=== PATIENT | female | born 1970 | race Caucasian/White ===

== ENCOUNTER 2016-06-29 11:17 | Emergency (ER) | payer BC ==
[2016-06-29] MEDS ORDERED: Aspirin Low Dose CHEW TAB* 81 MG PO ONE (14:09)
[2016-06-29] MEDS ORDERED: NS 0.9% 1000 ML* 1,000 ML IV ONE (14:10)
--- NOTE | 2016-06-29 16:00 | RAD ---
INDICATION: Pain and swelling. Pain COMPARISON: None TECHNIQUE: Duplex interrogation of the Lowerextremity was performed. FINDINGS: Deep veins: The common femoral, great saphenous, profunda femoris, proximal, mid, and distal deep femoral, popliteal, posterior tibial, and peroneal veins are patent. There is normal compressibility, augmentation, and phasic flow. Superficial veins: There are no findings of superficial thrombophlebitis. Popliteal fossa:There is no evidence of a popliteal cyst. Soft tissues:There are no soft tissue abnormalities. IMPRESSION: Normal examination. No evidence of deep venous thrombosis
[2016-06-29 16:50] LABS: Hematocrit 41 % (35-47); Hemoglobin 13.3 g/dl (12.0-16.0); Mean Corpuscular HGB Conc 33 g/dl (31-36); Mean Corpuscular Hemoglobin 26 pg (27-31); Mean Corpuscular Volume 79 fL (80-97); Mean Platelet Volume 8 um3 (7.4-10.4); Red Blood Count 5.18 10^6/ul (4.0-5.4); Red Cell Distribution Width 16 % (10.5-15); White Blood Count 6.3 10^3/ul (3.5-10.8)
[2016-06-29 17:06] LABS: ALT 20 U/L (7-52); AST 19 U/L (13-39); Albumin 4.2 g/dL (3.2-5.2); Alkaline Phosphatase 65 U/L (34-104); Anion Gap 9 mmol/L (2-11); BUN/Creatinine Ratio 7.7 (8-20); Blood Urea Nitrogen 5 mg/dL (6-24); CO2 Carbon Dioxide 25 mmol/L (22-32); Calcium 9.7 mg/dL (8.6-10.3); Chloride 102 mmol/L (101-111); EGFR African American 127.9 (>60); EGFR Non-African American 99.5 (>60); Globulin 3.3 g/dL (2-4); Glucose 98 mg/dL (70-100); Potassium 3.8 mmol/L (3.5-5.0); Sodium 136 mmol/L (133-145); Total Protein 7.5 g/dL (6.4-8.9)
[2016-06-29] MEDS ORDERED: Iohexol 350* (CONTRAST) 500 ML MDV IV ONE (17:09)
--- NOTE | 2016-06-29 17:42 | RAD ---
INDICATION: Chest pain. Short of breath. Evaluate for pulmonary embolus. COMPARISON: Venous duplex examination June 29, 2016 TECHNIQUE: Axial source images were obtained from the thoracic inlet to the hemidiaphragms following administration of [address] angiographic technique was utilized. Coronal and sagittal reconstructed images were acquired. CHEST FINDINGS: Neck/thyroid: The visualized neck to include the thyroid appear normal. Chest wall: There are no acute abnormalities of the bony thorax or chest wall. There is no supraclavicular, infraclavicular, or axillary lymphadenopathy. Lungs : There are no pulmonary parenchymal masses or infiltrates. The pulmonary interstitium appears normal. There are no endobronchial lesions. Cardiomediastinal structures: There is no CT evidence of acute pulmonary embolic disease. The heart is normal in size. There is no pericardial effusion. There is no evidence of aortic aneurysm or dissection. There is no mediastinal or hilar adenopathy. The esophagus appears normal. Pleura : There are no pleural-based masses or effusions. Other: There is a small hiatal hernia.. IMPRESSION: NO EVIDENCE OF ACUTE PULMONARY EMBOLIC DISEASE. LUNGS CLEAR. SMALL HIATAL HERNIA.
[2016-06-29 18:56] VITALS: BP 141/81
--- NOTE | 2016-07-09 11:56 | ED ---
Delvis Whatley Janilya, scribed for Erin Dawn MD on 06/29/16 at 1634 . Lower Extremity - HPI Summary HPI Summary: [facility] 45 y/o [facility] w/ a gradual onset of constant chest pressure and pain for about three weeks. Pt also reports SOB, fever of 99 F, cough. In addition, pt feels pain in her legs that feels like a pulled muscle. It first started w/ her left leg, and now the pain is also in the right leg. Pt was diagnosed w/ DVT previously. Pt states the pain feels similar. Pt is on blood thinner Xarelto. - History of Current Complaint Chief Complaint: EDDysrhythmPalp Stated Complaint: RAPID HEART RATE / DIFF BREATHING Time Seen by Provider: 06/29/16 16:07 Hx Obtained From: Patient Hx Last Menstrual Period: 05/18/14 Onset/Duration: Weeks Severity Initially: Moderate Severity Currently: Moderate Timing: Constant, Lasting Weeks Character Of Pain: Dull, Aching Aggravating Factor(s): Ambulation, Weight Bearing Alleviating Factor(s): Rest - Risk Factors Gout Risk Factors: Negative DVT Risk Factors: Negative Septic Arthritis Risk Factor: Negative - Allergies/Home Medications Allergies/Adverse Reactions: Allergies Allergy/AdvReac Type Severity Reaction Status Date / Time Sulfa Drugs Allergy TACHYCARDIA, Verified 11/14/14 08:18 BLOOD PRESSURE ELEVATES, ITCHY RASH CHEMICAL SENSITIVITY Allergy ASTHMA Uncoded 11/14/14 08:18 Home Medications: Home Medications Albuterol HFA INHALER* [Ventolin HFA Inhaler*] 1 puff INH Q6H PRN 06/29/16 [ History Confirmed 06/29/16] Cholecalciferol TAB* [Vitamin D TAB*] 2,000 units PO DAILY 06/29/16 [History Confirmed 06/29/16] DULoxetine DR CAP* [Cymbalta CAP*] 30 mg PO BEDTIME 06/29/16 [History Confirmed 06/29/16] DULoxetine DR CAP* [Cymbalta CAP*] 60 mg PO BEDTIME 06/29/16 [History Confirmed 06/29/16] Fluticasone NASAL SPRAY 50MCG* [Flonase NASAL SPRAY 50MCG*] 2 spray BOTH NARES DAILY 06/29/16 [History Confirmed 06/29/16] Multivitamins/Minerals TAB* [Theragran/minerals TAB*] 2 tab PO QAM 06/29/16 [ History Confirmed 06/29/16] Norethin Acet & Estrad-Fe [Taytulla 1-20 mg-Mcg(24)] 1 cap PO DAILY 06/29/16 [ History Confirmed 06/29/16] Rivaroxaban TAB(*) [Xarelto 15 mg(*)] 15 mg PO BID WITH MEALS 06/29/16 [History Confirmed 06/29/16] Vitamin E CAP* 400 unit PO QAM 06/29/16 [History Confirmed 06/29/16] busPIRone TAB* [Buspar TAB*] 10 mg PO TID 06/29/16 [History Confirmed 06/29/16] clonazePAM TAB(*) [KlonoPIN TAB(*)] 0.5 mg PO BID PRN 06/29/16 [History Confirmed 06/29/16] PMH/Surg Hx/FS Hx/Imm Hx Endocrine/Hematology History: Denies: Hx Diabetes, Hx Thyroid Disease Cardiovascular History: Reports: Hx Peripheral Vascular Disease - VARICOSE VEINS Denies: Hx Hypertension Comment Only: Other Cardiovascular Problems/Disorders - OCCASIONAL BILATERAL ANKLE SWELLIN, NONE NOW Respiratory History: Reports: Hx Asthma - with chemicals, Hx Sleep Apnea - not as big of an issue since losing 150 pounds Denies: Hx Chronic Obstructive Pulmonary Disease (COPD) GI History: Denies: Hx Cirrhosis, Hx Ulcer Musculoskeletal History: Reports: Hx Arthritis - BILATERAL KNEES Sensory History: Reports: Hx Contacts or Glasses Denies: Hx Hearing Aid Opthamlomology History: Reports: Hx Contacts or Glasses Neurological History: Reports: Hx Migraine - OCCASIONAL, LAST ONE IN JULY 2013 Psychiatric History: Reports: Hx Anxiety, Hx Depression - SEASONAL EFFECTIVE DISORDER, CONTROL WITH MEDS - Surgical History Surgery Procedure, Year, and Place: 1986 TONSILLECTOMY, [place]. 1989 WISDOM TOOTH EXTRACTION, [facility]. 2007 RIGHT KNEE ARTHROSCOPY AND DEBRIDEMENT, [place], [place]. 2009 LEFT KNEE ARTHROSCOPY AND DEBRIDEMENT, [place]. 2012 LAPAROSCOPIC GASTRIC BYPASS, [facility]. 2014 STICK FLABECTOMY ON LEFT LEG, [facility]. 02/2014 Stick phlebectomy REMOVAL OF VARICOSE VEINS LEFT LEG, [facility] Anesthesia Reactions: No Infectious Disease History: Denies: Hx Clostridium Difficile, Hx Hepatitis, Hx Human Immunodeficiency Virus (HIV), Hx of Known/Suspected MRSA, Hx Shingles, Hx Tuberculosis, Hx Known/ Suspected VRE, Hx Known/Suspected VRSA, History Other Infectious Disease, Traveled Outside the [place] in Last 30 Days - Family History Known Family History: Positive: Cardiac Disease - afib, DVT, bloodclots - mother , Other - stroke - mother - Social History Alcohol Use: Occasionally Alcohol Amount: NOT FOR LAST 2 MONTHS Substance Use Type: Reports: None Smoking Status (MU): Never Smoked Tobacco Review of Systems Positive: Fever Positive: Chest Pain - chest pressure Positive: Shortness Of Breath, Cough Positive: Arthralgia - bilateral leg pain, Myalgia - bilateral leg pain All Other Systems Reviewed And Are Negative: Yes Physical Exam Triage Information Reviewed: Yes Vital Signs On Initial Exam: Initial Vitals Temp Pulse Resp BP Pulse Ox 98.4 F 96 20 137/73 96 06/29/16 11:25 06/29/16 11:25 06/29/16 11:25 06/29/16 11:25 06/29/16 11:25 Vital Signs Reviewed: Yes Appearance: Positive: Well-Appearing, No Pain Distress Skin: Positive: Warm, Skin Color Reflects Adequate Perfusion, Dry Eyes: Positive: EOMI, ERIKA ENT: Positive: Pharynx normal, TMs normal Neck: Positive: Supple, Nontender Respiratory/Lung Sounds: Positive: Clear to Auscultation, Breath Sounds Present. Negative: Rales, Rhonchi, Wheezes Cardiovascular: Positive: RRR. Negative: Murmur, Rub - no gallops Abdomen Description: Positive: Nontender, Soft. Negative: Distended, Guarding - no rebound Bowel Sounds: Positive: Present Musculoskeletal: Positive: Strength/ROM Intact. Negative: Edema Left, Edema Right Neurological: Positive: Sensory/Motor Intact, Alert, Oriented to Person Place, Time, CN Intact II-III Psychiatric: Positive: Affect/Mood Appropriate Diagnostics - Vital Signs Vital Signs Temp Pulse Resp BP Pulse Ox 06/29/16 11:25 98.4 F 96 20 137/73 96 - Laboratory Result Diagrams: 06/29/16 16:40 06/29/16 16:40 Lab Statement: Any lab studies that have been ordered have been reviewed, and results considered in the medical decision making process. - CT chest/thorax CTA CT Interpretation: No Acute Changes - IMPRESSION: NO EVIDENCE OF ACUTE PULMONARY EMBOLIC DISEASE. LUNGS CLEAR. SMALL HIATAL HERNIA. CT Interpretation Completed By: Radiologist - Ultrasound No standard instances Ultrasound Interpretation: No Acute Changes - Venous Doppler Study. IMPRESSION: Normal examination. No evidence of deep venous thrombosis Ultrasound Interpretation Completed By: Radiologist - EKG 1135 Cardiac Rate: NL - at 92 bpm EKG Rhythm: Sinus Rhythm EKG Interpretation: No T wave abnormalities Lower Extremity Course/Dx - Diagnoses Provider Diagnoses: Chest pain, Leg pain Discharge - Discharge Plan Condition: Stable Disposition: HOME Patient Education Materials: Chest Pain (ED), Leg Pain (ED) Referrals: [facility] PHYSICIAN REFERRAL [Outside] Additional Instructions: Follow up with your primary care provider if symptoms persist or worsen. The documentation as recorded by the Delvis carroll Janilya accurately reflects the service I personally performed and the decisions made by , Erin Dawn MD.
== END 2016-06-29 18:54 | disposition home or self-care (01) ==
LOC: ED 11:17
DX: R07.9 Chest pain, unspecified (principal); R06.02 Shortness of breath; R05 Cough; R50.9 Fever, unspecified; M79.605 Pain in left leg; M79.604 Pain in right leg
CPT/HCPCS: 36415; 71275; 80053; 83605; 84484; 84702; 85025; 93005; 99283; A9270-GY; Q9967